=== PATIENT | female | born 1995 | race Caucasian/White ===

== ENCOUNTER 2020-09-29 14:07 | Emergency (ER) | payer MEDICAID, OTHER ==
[~2020-09-29] VITALS: Ht 170.2 cm; Wt 75.4 kg
[2020-09-29] MEDS ORDERED: SODIUM CHLORIDE FLUSH 10ML SYR IVF ONE (15:00)
[2020-09-29] MEDS ORDERED: SODIUM CHLORIDE 0.9% 1,000ML IVBOLUS ONE (15:00)
[2020-09-29 15:54] LABS: BASOPHILS % (AUTO) 1 % (0-1); EOSINOPHILS % (AUTO) 1 % (1-7); LYMPHOCYTES % (AUTO) 31 % (22-44); MEAN CORPUSCULAR HEMOGLOBIN 26.2 pg (27.0-34.8); MEAN CORPUSCULAR HGB CONC 32.7 g/dL (32.4-35.8); MONOCYTES % (AUTO) 7 % (2-9); NEUTROPHILS % (AUTO) 60 % (42-75); PLATELET COUNT 339 x10^3/uL (130-400); RED CELL DISTRIBUTION WIDTH 13.7 % (9.6-15.2)
[2020-09-29 15:55] LABS: MD NO
[2020-09-29 16:05] LABS: ALANINE AMINOTRANSFERASE 21 U/L (12-78); ALBUMIN 4.5 g/dL (3.4-5.0); ANION GAP 6 mmol/L (5-15); CALCIUM 10.7 mg/dL (8.5-10.1); CHLORIDE 110 mmol/L (98-107); CREATININE 1.02 mg/dL (0.55-1.02)
[2020-09-29 16:06] LABS: MICROSCOPIC AUTO
[2020-09-29 16:09] LABS: ALKALINE PHOSPHATASE 135 U/L (45-117); BILIRUBIN,TOTAL 0.5 mg/dL (0.2-1.0); TOTAL PROTEIN 8.7 g/dL (6.4-8.2)
[2020-09-29 17:26] VITALS: BP 145/95
== END 2020-09-29 17:57 | disposition home or self-care (01) ==
LOC: ED 17:15
DX: N20.0 Calculus of kidney (principal)
CPT/HCPCS: 36415; 74018; 76770; 80053; 81001; 84703; 85025; 87086; 96360; 99285; J7030

== ENCOUNTER 2021-04-18 15:12 | Emergency (ER) | payer SELFPAY ==
[~2021-04-18] VITALS: Ht 172.7 cm; Wt 65.0 kg
--- NOTE | 2021-04-18 15:21 | NUR ---
sts mother is matthew: [phone]. changed to gown, belongigns/room secured. pt sts she is not comfortable w male providers. report to torbiio gomez. as
[2021-04-18] MEDS ORDERED: LORazepam 1MG TABLET ONE (15:43)
[2021-04-18] MEDS ORDERED: OLANZAPINE 5 MG TABLET ONE (15:44)
--- NOTE | 2021-04-18 15:55 | NUR ---
This pt presents to the ER manic, flight of ideas, statements of grandious and repeating self multiple times. Making statements such as "I speak 150,000 languages, but the signs in this room are all bad, I can't tell you what my pain level assessment is at because I'm color blind and the signs are in about 15 different colors." "What color was my hair when I got here? My whole body feels on fire." Pt requests bathroom. Given urine cup for UA and educated how to collect. Per sitter, pt urinated in cup, dumped urine and rinsed cup. Pt educated about clean catch urine again. Medicated to JAN.
[2021-04-18] MEDS ORDERED: LORazepam 1MG TABLET PO ONE (16:00)
[2021-04-18] MEDS ORDERED: OLANZAPINE ODT 10MG PO ONE (16:00)
[2021-04-18] MEDS ORDERED: OLANZAPINE 5 MG TABLET PO ONE (16:00)
[2021-04-18] MEDS ORDERED: OLANZAPINE ODT 10MG PO SCH (16:00)
--- NOTE | 2021-04-18 16:02 | NUR ---
1 of 1 belonging bag labeled and placed in psych locker.
--- NOTE | 2021-04-18 16:18 | NUR ---
Per pt, mother okay to update.
--- NOTE | 2021-04-18 16:18 | NUR ---
AMARILIS Levi at bedside for eval.
[2021-04-18 16:45] LABS: MICROSCOPIC INDICATED
[2021-04-18 16:51] LABS: AMPHETAMINE SCREEN, URINE Negative (Negative); BARBITURATE SCREEN, URINE Negative (Negative); BENZODIAZEPINE SCREEN, URINE Negative (Negative); CANNABINOID SCREEN, URINE Positive (Negative); COCAINE SCREEN, URINE Negative (Negative); METHADONE SCREEN, URINE Negative (Negative); OPIATE SCREEN, URINE Negative (Negative)
[2021-04-18 17:03] LABS: BASOPHILS % (AUTO) 1 % (0-1); EOSINOPHILS % (AUTO) 1 % (1-7); LYMPHOCYTES % (AUTO) 16 % (22-44); MEAN CORPUSCULAR HEMOGLOBIN 27.6 pg (27.0-34.8); MEAN CORPUSCULAR HGB CONC 33.6 g/dL (32.4-35.8); MEAN PLATELET VOLUME 8.6 fL (7.4-10.4); MONOCYTES % (AUTO) 6 % (2-9); NEUTROPHILS % (AUTO) 77 % (42-75); PLATELET COUNT 253 x10^3/uL (130-400); RED BLOOD COUNT 4.67 x10^6/uL (3.82-5.3); RED CELL DISTRIBUTION WIDTH 12.8 % (9.6-15.2)
[2021-04-18 17:05] LABS: MD NO
[2021-04-18 17:16] LABS: ANION GAP 8 mmol/L (5-15); CALCIUM 10.6 mg/dL (8.5-10.1); CHLORIDE 110 mmol/L (98-107)
[2021-04-18 17:23] LABS: SALICYLATE LEVEL < 1.7 mg/dL (2.8-20.0)
[2021-04-18 17:27] LABS: ALANINE AMINOTRANSFERASE 29 U/L (12-78); ALKALINE PHOSPHATASE 92 U/L (45-117); BILIRUBIN,TOTAL 0.6 mg/dL (0.2-1.0); CREATININE 0.96 mg/dL (0.55-1.02); TOTAL PROTEIN 7.3 g/dL (6.4-8.2)
[2021-04-18] MEDS ORDERED: OLAN5TAB9 PO (18:55)
--- NOTE | 2021-04-18 19:07 | NUR ---
Report to JEAN MARIE Lassiter, to assume full care. Pt sleeping in view of sitter, visible chest rise and fall.
[2021-04-18 20:42] VITALS: BP 132/77
== END 2021-04-18 20:44 | disposition home or self-care (01) ==
LOC: ED 17:14
DX: F23 Brief psychotic disorder (principal); F41.9 Anxiety disorder, unspecified; F39 Unspecified mood [affective] disorder
CPT/HCPCS: 36415; 80053; 80299; 80307; 80320; 80329; 81001; 84443; 84703; 85025; 87086; 99284; G0480